=== PATIENT | female | born 1950 | race Two or more races ===

== ENCOUNTER → 2017-12-16 | Emergency (ER) | payer OTHER ==
[~2017-12-16] VITALS: Ht 157.5 cm; Wt 79.4 kg
[~2017-12-16] MED LIST: COZAAR25 MG; NEURONTIN300 MG; SYNTHROID112 MCG; ZOCOR40 MG
== END | disposition home or self-care (01) ==
LOC: ER 19:39
DX: L03.317 Cellulitis of buttock (principal)